=== PATIENT | male | born 1965 | race Caucasian/White ===

== ENCOUNTER 2016-06-24 16:33 | Emergency (ER) | payer BC ==
--- NOTE | 2016-06-24 17:16 | DIAGNOSTIC IMAGING REPORT ---
PROCEDURE: XR HAND 3 OR 4 VIEWS - RIGHT INDICATION: Trauma. Dog bite. TECHNIQUE: Three views. COMPARISON: None. FINDINGS: There is a small amount of subcutaneous emphysema over the dorsum of the right hand. Osseous structures and joint spaces are normal. No evidence of fracture or radiopaque foreign body. IMPRESSION: 1. Soft tissue injury over the dorsum of the right hand (subcutaneous emphysema). 2. Otherwise negative right hand.
--- NOTE | 2016-06-24 17:18 | ED NURSING NOTES ---
Clinical Report - Nurses [facility] [address] [place] [address] 06/24/2016 16:34 Patient: ELLY WARD TRIAGE Triage time 16:40 Jun 24 2016. Acuity: LEVEL 3. Chief Complaint: DOG BITE. Alert. ENRIQUE COMA SCORE: Enrique Coma Scale: 15- eyes open spontaneously (4); best verbal response- oriented x 4 (5); best motor response- obeys commands (6). --16:51 Tom Vora R.N. 16:40 06/24/16. BP: 135/98. HR: 96. RR: 16. O2 saturation: 98% on room air. Temp: 98.8 F. Pain level now: 07/08. --16:51 Tom Vora R.N. Weight: 94.3 kg stated. Height/Length: 73 inches Per Patient. BMI: 27.4. --16:45 Tom Vora R.N. Medications Doxycycline Calcium Oral, 2 x daily (For sinus infection). --16:44 Tom Vora R.N. Allergies Sulfa Antibiotics.(rash) --23:41 Tom Vora R.N. History Arrived by private vehicle. Historian: patient. Accompanied by family and spouse. ( Dog bite to (R) Hand. Puncture wound with swelling.). This occurred just prior to arrival. Circumstances: This was an "unprovoked" attack. (His puppy got excited when another dog approached). He has had swelling with tenderness ((R) Hand, dorsal region). Treatment MANAGER PRODUCT SUPPORT: (Pressure dressing applied in the field). PAST MEDICAL HX: Negative. SOCIAL HX: Never smoker. No alcohol use or drug use. No infectious disease exposure. ABUSE ASSESSMENT: No report of abuse. FALL RISK ASSESSMENT: Fall risk assessment completed. No fall risk identified. NUTRITIONAL RISK ASSESSMENT: The nutritional risk assessment revealed no deficiencies. FUNCTIONAL ASSESSMENT: Functional assessment: no impairments noted. LEARNING NEEDS ASSESSMENT: The learning needs assessment revealed no barriers. SKIN INTEGRITY ASSESSMENT: Skin integrity risk assessment completed. No skin integrity risk identified. --16:51 Tom Vora R.N. PROBLEMS: no known problems. ADDITIONAL SURGERIES: Inguinal Hernia Repair. --16:47 Tom Vora R.N. Interventions ID band on patient. To treatment room. --16:51 Tom Vora R.N. PHYSICAL ASSESSMENT Ambulatory to room. GENERAL / NEURO / PSYCH: Alert. Oriented X 4. HEENT: Head non-tender. RESPIRATORY: Respirations not labored. Breath sounds within normal limits. CVS: Normal heart rate and rhythm. Pulses within normal limits. Capillary refill less than 2 seconds. GI / : Abdomen soft and nontender. EXTREMITIES: Extremities exhibit normal ROM. Neuro-vascular status intact to the extremity. SKIN: Skin is warm and dry. No signs or symptoms of infection. --16:51 Tom Vora R.N. NURSING PROGRESS NOTES Reassurance given. Patient identifiers checked. Call light placed in reach. Side rails up x 1. Bed placed in lowest position. Brakes of bed on. Patient ready for evaluation- chart flagged and ED physician notified. --16:51 Tom Vora R.N. 16:50 06/24/16. Patient walked to radiology. --16:58 Tom Vora R.N. 17:00 06/24/16. ( (R) Hand wound cleansed with a Chlorhexadine sponge scrubby.). --17:09 Tom Vora R.N. 17:02 06/24/2016 Augmentin (Amoxicillin-Pot Clavulanate) PO Tablets 875 mg given. Allergies verified and confirmed 5 rights. --17:09 Tom Vora R.N. 16:57 late entry -. Patient walked back to ED from radiology with tech. --17:10 Tom Vora R.N. DISPOSITION / DISCHARGE Departure time: 1745. --19:38 Tom Vora R.N. 17:30 06/24/16. BP: 109/64. HR: 76. RR: 16. O2 saturation: 98%. Temp: 98.9 F. Pain level now: 06/07. --19:40 Tom Vora R.N. 17:45. No learning barriers present. Discharge instructions provided and reviewed with the patient. Reviewed medication(s) (prescription given to pt). Reviewed wound care instructions. Reviewed referral to family practice for followup. Patient verbalized understanding. Written instructions provided in Uzbek. The patient was discharged by the physician. He was discharged home and accompanied by spouse. He left the Emergency Department ambulatory and via private vehicle. Spouse driving. --23:40 Tom Vora R.N. Locked/Released at 06/24/2016 23:42 by Tom Vora R.N.
--- NOTE | 2016-06-24 17:18 | ED ORDER SUMMARY ---
..... Patient: ELLY WARD OrderSheet [facility] VisitID: [id number] [address] [place] [address] 51y, M Registration Date/Time: 06/24/2016 ORDER SHEET Weight: 94.3 kg (stated) Allergies: Sulfa Antibiotics GENERAL ORDERS: Hand 3 or 4V Right Urgent (16:46 06/24/2016 Sayra SORTO) (17:09 Dario R.N.) MEDICATION ORDERS: Augmentin PO 875 mg (NOW) (16:44 06/24/2016 Sayra SORTO) (17:09 Dario R.N.) IV FLUIDS: ORDER SHEET NOTES: [Electronically signed by Tom Vora R.N. (23:42 06/24/2016)] [Electronically signed by Venessa Moore MD (23:40 07/02/2016)] [Electronically locked/signed by Tom Vora R.N. (23:42 06/24/2016)]
--- NOTE | 2016-06-24 17:18 | ED NURSING NOTES ---
Clinical Report - Nurses [facility] [address] [place] [address] 06/24/2016 16:34 Patient: ELLY WARD TRIAGE Triage time 16:40 Jun 24 2016. Acuity: LEVEL 3. Chief Complaint: DOG BITE. Alert. ENRIQUE COMA SCORE: Enrique Coma Scale: 15- eyes open spontaneously (4); best verbal response- oriented x 4 (5); best motor response- obeys commands (6). --16:51 Tom Vora R.N. 16:40 06/24/16. BP: 135/98. HR: 96. RR: 16. O2 saturation: 98% on room air. Temp: 98.8 F. Pain level now: 07/08. --16:51 Tom Vora R.N. Weight: 94.3 kg stated. Height/Length: 73 inches Per Patient. BMI: 27.4. --16:45 Tom Vora R.N. Medications Doxycycline Calcium Oral, 2 x daily (For sinus infection). --16:44 Tom Vora R.N. Allergies Sulfa Antibiotics.(rash) --23:41 Tom Vora R.N. History Arrived by private vehicle. Historian: patient. Accompanied by family and spouse. ( Dog bite to (R) Hand. Puncture wound with swelling.). This occurred just prior to arrival. Circumstances: This was an "unprovoked" attack. (His puppy got excited when another dog approached). He has had swelling with tenderness ((R) Hand, dorsal region). Treatment CRUSHER SUPERVISOR: (Pressure dressing applied in the field). PAST MEDICAL HX: Negative. SOCIAL HX: Never smoker. No alcohol use or drug use. No infectious disease exposure. ABUSE ASSESSMENT: No report of abuse. FALL RISK ASSESSMENT: Fall risk assessment completed. No fall risk identified. NUTRITIONAL RISK ASSESSMENT: The nutritional risk assessment revealed no deficiencies. FUNCTIONAL ASSESSMENT: Functional assessment: no impairments noted. LEARNING NEEDS ASSESSMENT: The learning needs assessment revealed no barriers. SKIN INTEGRITY ASSESSMENT: Skin integrity risk assessment completed. No skin integrity risk identified. --16:51 Tom Vora R.N. PROBLEMS: no known problems. ADDITIONAL SURGERIES: Inguinal Hernia Repair. --16:47 Tom Vora R.N. Interventions ID band on patient. To treatment room. --16:51 Tom Vora R.N. PHYSICAL ASSESSMENT Ambulatory to room. GENERAL / NEURO / PSYCH: Alert. Oriented X 4. HEENT: Head non-tender. RESPIRATORY: Respirations not labored. Breath sounds within normal limits. CVS: Normal heart rate and rhythm. Pulses within normal limits. Capillary refill less than 2 seconds. GI / : Abdomen soft and nontender. EXTREMITIES: Extremities exhibit normal ROM. Neuro-vascular status intact to the extremity. SKIN: Skin is warm and dry. No signs or symptoms of infection. --16:51 Tom Vora R.N. NURSING PROGRESS NOTES Reassurance given. Patient identifiers checked. Call light placed in reach. Side rails up x 1. Bed placed in lowest position. Brakes of bed on. Patient ready for evaluation- chart flagged and ED physician notified. --16:51 Tom Vora R.N. 16:50 06/24/16. Patient walked to radiology. --16:58 Tom Vora R.N. 17:00 06/24/16. ( (R) Hand wound cleansed with a Chlorhexadine sponge scrubby.). --17:09 Tom Vora R.N. 17:02 06/24/2016 Augmentin (Amoxicillin-Pot Clavulanate) PO Tablets 875 mg given. Allergies verified and confirmed 5 rights. --17:09 Tom Vora R.N. 16:57 late entry -. Patient walked back to ED from radiology with tech. --17:10 Tom Vora R.N. DISPOSITION / DISCHARGE Departure time: 1745. --19:38 Tom Vora R.N. 17:30 06/24/16. BP: 109/64. HR: 76. RR: 16. O2 saturation: 98%. Temp: 98.9 F. Pain level now: 06/07. --19:40 Tom Vora R.N. 17:45. No learning barriers present. Discharge instructions provided and reviewed with the patient. Reviewed medication(s) (prescription given to pt). Reviewed wound care instructions. Reviewed referral to family practice for followup. Patient verbalized understanding. Written instructions provided in Divehi. The patient was discharged by the physician. He was discharged home and accompanied by spouse. He left the Emergency Department ambulatory and via private vehicle. Spouse driving. --23:40 Tom Vora R.N. Locked/Released at 06/24/2016 23:42 by Tom Vora R.N.
--- NOTE | 2016-06-24 17:18 | ED ORDER SUMMARY ---
..... Patient: ELLY WARD OrderSheet [facility] VisitID: [id number] [address] [place] [address] 51y, M Registration Date/Time: 06/24/2016 ORDER SHEET Weight: 94.3 kg (stated) Allergies: Sulfa Antibiotics GENERAL ORDERS: Hand 3 or 4V Right Urgent (16:46 06/24/2016 Sayra SORTO) (17:09 Dario R.N.) MEDICATION ORDERS: Augmentin PO 875 mg (NOW) (16:44 06/24/2016 Sayra SORTO) (17:09 Dario R.N.) IV FLUIDS: ORDER SHEET NOTES: [Electronically signed by Tom Vora R.N. (23:42 06/24/2016)] [Electronically signed by Venessa Moore MD (23:40 07/02/2016)] [Electronically locked/signed by Tom Vora R.N. (23:42 06/24/2016)]
--- NOTE | 2016-06-24 17:18 | ED CLINICAL REPORT ---
Clinical Report - Physicians/Mid Levels [facility] [address] [place] [address] 06/24/2016 16:34 Patient: ELLY WARD Time Seen: 16:40. Arrived- By private vehicle. Historian- patient. HISTORY OF PRESENT ILLNESS Location of injuries- right hand. Chief Complaint: DOG BITE. The injury occurred just prior to arrival. The animal reportedly appeared well. Occurred at a park. This was an "unprovoked" attack. (pt's dog was excitedly playing with another dog). The patient has had swelling (localized, around bite, with bruising). No skin rash, dizziness, itching, fainting episodes or difficulty breathing. He has not had drainage or trouble swallowing. REVIEW OF SYSTEMS The patient has had swelling. No numbness, headache, difficulty breathing, weakness or tingling. No chest pain, nausea, fever, joint pain or enlarged lymph nodes. No abdominal pain, vomiting or chills. All systems otherwise negative, except as recorded above. PAST HISTORY Problems: no known problems. Additional Surgeries: Inguinal Hernia Repair. Medications: Doxycycline Calcium Oral, 2 x daily (For sinus infection). Allergies: Sulfa Antibiotics.(rash). SOCIAL HISTORY Never smoker. No alcohol use or drug use. ADDITIONAL NOTES The nursing notes have been reviewed. PHYSICAL EXAM Vital Signs: 06/24/2016 16:40 BP: 135/98. HR: 96. RR: 16. O2 saturation: 98%. Temp: 98.8 F. Pain level now: 210. Have been reviewed. Appearance: Alert. Oriented X3. No acute distress. Head: Head normal on inspection and non-tender. Eyes: Eyes normal inspection. ENT: Nose normal on inspection. Neck: No decreased ROM in the neck. CVS: Pulses normal. Respiratory: No respiratory distress. Back: ROM normal. Skin: Skin warm and dry. Normal skin color. Normal skin turgor. Extremities: Dorsal right hand: moderate tenderness and swelling, small ecchymosis and multiple puncture wounds of the distal aspect of the dorsal hand. Neurovascular intact distally. No erythema, laceration, abrasion, foreign body or deformity. No limitation of extension. Neuro: Oriented X 3. No motor deficit. No sensory deficit. LABS, X-RAYS, AND EKG Rt Hand X-ray: No fracture. Normal alignment. No bony lesion, air in the soft tissue or foreign body. Soft tissues normal. Joint spaces normal. Views: AP, lateral and oblique. Technique: good. The X-rays were independently viewed by me, interpreted by the radiologist and contemporaneously by me and discussed with the radiologist. Prior films were not available for comparison. Pulse Oximetry: 06/24/2016 16:40 O2 saturation: 98%. (FIO2 - room air). Interpretation: normal. PROGRESS AND PROCEDURES Course of Care: Hand x-ray was negative. Wounds were soaked in saline with betadine, and pt was started on prophylactic Augmentin. Patient counseled in person regarding the patient's stable condition and diagnosis. Old medical records reviewed. Disposition: Discharged. Condition: stable. CLINICAL IMPRESSION Single superficial dog bite to the right hand. INSTRUCTIONS Apply ice for 15-20 minutes three times a day as needed and until better. Don't apply ice directly to skin and don't use while asleep. Elevate affected areas above chest level. Warnings: GENERAL WARNINGS: Return or contact your physician immediately if your condition worsens or changes unexpectedly, if not improving as expected, or if other problems arise. Your Current Medications: CONTINUE TAKING THE FOLLOWING MEDICATIONS: Doxycycline Calcium Oral : 2 x daily, For sinus infection. Prescription Medications: Hydrocodone/APAP 5mg / 325mg: take 1-2 orally every 6 hours as needed for pain. Dispense twelve (12). No refill. Augmentin 875 mg: take 1 tablet orally every 12 hours for 7 days. No refill. Substitution is permissible. Follow-up: Follow up with your doctor as needed. Understanding of the discharge instructions verbalized by patient. (Electronically signed by Venessa Moore MD 07/02/2016 23:40) Addenda for ELLY WARD VisitID: [id number] Date: 06/24/2016 06/24/2016 23:44 4700--Bacitracin Antibiotic ointment applied to puncture wound, vaseline gauze applied over ointment followed by a sterile 4x4 and wrapped in Kerlix Gauze. (Electronically signed by Tom Vora R.N. - 06/24/2016 23:44)
--- NOTE | 2016-06-24 17:18 | ED CLINICAL REPORT ---
Clinical Report - Physicians/Mid Levels [facility] [address] [place] [address] 06/24/2016 16:34 Patient: ELLY WARD Time Seen: 16:40. Arrived- By private vehicle. Historian- patient. HISTORY OF PRESENT ILLNESS Location of injuries- right hand. Chief Complaint: DOG BITE. The injury occurred just prior to arrival. The animal reportedly appeared well. Occurred at a park. This was an "unprovoked" attack. (pt's dog was excitedly playing with another dog). The patient has had swelling (localized, around bite, with bruising). No skin rash, dizziness, itching, fainting episodes or difficulty breathing. He has not had drainage or trouble swallowing. REVIEW OF SYSTEMS The patient has had swelling. No numbness, headache, difficulty breathing, weakness or tingling. No chest pain, nausea, fever, joint pain or enlarged lymph nodes. No abdominal pain, vomiting or chills. All systems otherwise negative, except as recorded above. PAST HISTORY Problems: no known problems. Additional Surgeries: Inguinal Hernia Repair. Medications: Doxycycline Calcium Oral, 2 x daily (For sinus infection). Allergies: Sulfa Antibiotics.(rash). SOCIAL HISTORY Never smoker. No alcohol use or drug use. ADDITIONAL NOTES The nursing notes have been reviewed. PHYSICAL EXAM Vital Signs: 06/24/2016 16:40 BP: 135/98. HR: 96. RR: 16. O2 saturation: 98%. Temp: 98.8 F. Pain level now: 210. Have been reviewed. Appearance: Alert. Oriented X3. No acute distress. Head: Head normal on inspection and non-tender. Eyes: Eyes normal inspection. ENT: Nose normal on inspection. Neck: No decreased ROM in the neck. CVS: Pulses normal. Respiratory: No respiratory distress. Back: ROM normal. Skin: Skin warm and dry. Normal skin color. Normal skin turgor. Extremities: Dorsal right hand: moderate tenderness and swelling, small ecchymosis and multiple puncture wounds of the distal aspect of the dorsal hand. Neurovascular intact distally. No erythema, laceration, abrasion, foreign body or deformity. No limitation of extension. Neuro: Oriented X 3. No motor deficit. No sensory deficit. LABS, X-RAYS, AND EKG Rt Hand X-ray: No fracture. Normal alignment. No bony lesion, air in the soft tissue or foreign body. Soft tissues normal. Joint spaces normal. Views: AP, lateral and oblique. Technique: good. The X-rays were independently viewed by me, interpreted by the radiologist and contemporaneously by me and discussed with the radiologist. Prior films were not available for comparison. Pulse Oximetry: 06/24/2016 16:40 O2 saturation: 98%. (FIO2 - room air). Interpretation: normal. PROGRESS AND PROCEDURES Course of Care: Hand x-ray was negative. Wounds were soaked in saline with betadine, and pt was started on prophylactic Augmentin. Patient counseled in person regarding the patient's stable condition and diagnosis. Old medical records reviewed. Disposition: Discharged. Condition: stable. CLINICAL IMPRESSION Single superficial dog bite to the right hand. INSTRUCTIONS Apply ice for 15-20 minutes three times a day as needed and until better. Don't apply ice directly to skin and don't use while asleep. Elevate affected areas above chest level. Warnings: GENERAL WARNINGS: Return or contact your physician immediately if your condition worsens or changes unexpectedly, if not improving as expected, or if other problems arise. Your Current Medications: CONTINUE TAKING THE FOLLOWING MEDICATIONS: Doxycycline Calcium Oral : 2 x daily, For sinus infection. Prescription Medications: Hydrocodone/APAP 5mg / 325mg: take 1-2 orally every 6 hours as needed for pain. Dispense twelve (12). No refill. Augmentin 875 mg: take 1 tablet orally every 12 hours for 7 days. No refill. Substitution is permissible. Follow-up: Follow up with your doctor as needed. Understanding of the discharge instructions verbalized by patient. (Electronically signed by Venessa Moore MD 07/02/2016 23:40) Addenda for ELLY WARD VisitID: [id number] Date: 06/24/2016 06/24/2016 23:44 2400--Bacitracin Antibiotic ointment applied to puncture wound, vaseline gauze applied over ointment followed by a sterile 4x4 and wrapped in Kerlix Gauze. (Electronically signed by Tom oVra R.N. - 06/24/2016 23:44)
--- NOTE | 2016-07-02 23:40 | ED MAR SUMMARY ---
..... Medication Administration Record [facility] [address] [place] [address] Patient: ELLY WARD Visit ID: [id number] 51y, M Weight: 94.3 kg Height/Length: 73 in BMI: 27.4 ALLERGIES: Sulfa Antibiotics Given 17:02 06/24/2016 Tom Vora R.N. Medication Administered: AUGMENTIN [PO] (AMOXICILLIN-POT CLAVULANATE), Dose: 875 mg Tablets PO. Medication Ordered: Augmentin PO 875 mg (NOW).
--- NOTE | 2016-07-02 23:40 | ED MAR SUMMARY ---
..... Medication Administration Record [facility] [address] [place] [address] Patient: ELLY WARD Visit ID: [id number] 51y, M Weight: 94.3 kg Height/Length: 73 in BMI: 27.4 ALLERGIES: Sulfa Antibiotics Given 17:02 06/24/2016 Tom Vora R.N. Medication Administered: AUGMENTIN [PO] (AMOXICILLIN-POT CLAVULANATE), Dose: 875 mg Tablets PO. Medication Ordered: Augmentin PO 875 mg (NOW).
--- NOTE | 2016-07-02 23:40 | ED MED RECONCILIATION SUMMARY ---
Patient: ELLY WARD Medication Reconciliation Report [facility] VisitID: [id number] [address] [place] [address] 51y, M Registration Date/Time: 06/24/2016 Weight: 94.3 kg Height/Length: 73 in. BMI: 27.4 ALLERGIES: Sulfa Antibiotics The patient's Home Medications are listed below: CONTINUE TAKING THE FOLLOWING MEDICATIONS: Doxycycline Calcium Oral, 2 x daily, For sinus infection The source(s) of the original Home Medication information: Not obtained. The following Medications were given to the patient in the Emergency Department: Augmentin [PO] PO 875 mg, administered: 06/24/2016 5:02:00 PM The following Medications were prescribed to the patient: Hydrocodone/APAP 5mg / 325mg: take 1-2 orally every 6 hours as needed for pain. Dispense twelve (12). No refill. -- Venessa Moore MD Augmentin 875 mg: take 1 tablet orally every 12 hours for 7 days. No refill. Substitution is permissible. -- Venessa Moore MD
--- NOTE | 2016-07-02 23:40 | ED DISCHARGE INSTRUCTIONS ---
Patient: ELLY WARD General Instructions [facility] VisitID: [id number] [place] [address] 51y, M Registration Date/Time: 06/24/2016 Single superficial dog bite to the right hand. INSTRUCTIONS Apply ice for 15-20 minutes three times a day as needed and until better. Don't apply ice directly to skin and don't use while asleep. Elevate affected areas above chest level. Warnings: GENERAL WARNINGS: Return or contact your physician immediately if your condition worsens or changes unexpectedly, if not improving as expected, or if other problems arise. Your Current Medications: CONTINUE TAKING THE FOLLOWING MEDICATIONS: Doxycycline Calcium Oral : 2 x daily, For sinus infection. Prescription Medications: Hydrocodone/APAP 5mg / 325mg: take 1-2 orally every 6 hours as needed for pain. Dispense twelve (12). No refill. Augmentin 875 mg: take 1 tablet orally every 12 hours for 7 days. No refill. Substitution is permissible. Follow-up: Follow up with your doctor as needed. Understanding of the discharge instructions verbalized by patient. ADDITIONAL INFORMATION Dog Bite If a dog has bitten you and the wound is deep enough to break the skin, an infection may occur. Therefore, you should watch for the warning signs listed below. The doctor may not close the wound completely. This is to allow fluid to drain in the event of an infection. Home Care Watch the wound for signs of infection listed below. In certain types of bites, antibiotics may be prescribed. Begin taking these as soon as possible, as directed until they are all gone. Rabies Prevention If you live in an area where rabies occurs in wild animals, the rabies virus can be passed to cats and dogs. An infected animal can pass the rabies virus to you during a bite. If ahealthy-looking pet dog has bitten you, it should be kept in a secure area for the next 10 days to watch for signs of illness. If the pet smelter charger wont cooperate with you, contact the [facility] animal control department (or local law enforcement). If the animal becomes ill or dies [id number] days, contact your animal control department at once. The animal must be tested for rabies. If the animal stays healthy for the next 10 days, then there is no danger of rabies in the dog or you. Pets fully vaccinated against rabies (2 shots) are at very low risk for the infection. However, because human rabies is almost always fatal, any biting dog should be kept in confinement for 10 days as an extra precaution. If a stray dog bit you, contact the animal control department. They can provide information on capture, quarantine, and animal rabies testing. If you are unable to locate the animal that bit you in the next 2days, and if rabies exists in your region, you must be evaluated for the rabies vaccine series. Contact your doctor or return here promptly. All animal bites should be reported to the [facility] animal control department. If you were not given a form to fill out, you can report it yourself by calling. Follow Up with your doctor as advised. Most skin wounds heal within 10 days. However, an infection may occur even with proper treatment. Check your woundevery 6 hoursfor 2 days, then at least once a day for the next two days for the signs of infection listed below. Get Prompt Medical Attention if any of the following occur: Signs of infection: Spreading redness Increased pain or swelling Fever of 100.4F (38C) or higher, or as directed by your healthcare provider Colored fluid or pus draining from the wound Headache, confusion, strange behavior, or a seizure (signs of a rabies infection) You have been given the following additional information: Dog Bite (Electronically signed by Venessa Moore MD 07/02/2016 23:40)
--- NOTE | 2016-07-02 23:40 | ED DISCHARGE INSTRUCTIONS ---
Patient: ELLY WARD General Instructions [facility] VisitID: [id number] [place] [address] 51y, M Registration Date/Time: 06/24/2016 Single superficial dog bite to the right hand. INSTRUCTIONS Apply ice for 15-20 minutes three times a day as needed and until better. Don't apply ice directly to skin and don't use while asleep. Elevate affected areas above chest level. Warnings: GENERAL WARNINGS: Return or contact your physician immediately if your condition worsens or changes unexpectedly, if not improving as expected, or if other problems arise. Your Current Medications: CONTINUE TAKING THE FOLLOWING MEDICATIONS: Doxycycline Calcium Oral : 2 x daily, For sinus infection. Prescription Medications: Hydrocodone/APAP 5mg / 325mg: take 1-2 orally every 6 hours as needed for pain. Dispense twelve (12). No refill. Augmentin 875 mg: take 1 tablet orally every 12 hours for 7 days. No refill. Substitution is permissible. Follow-up: Follow up with your doctor as needed. Understanding of the discharge instructions verbalized by patient. ADDITIONAL INFORMATION Dog Bite If a dog has bitten you and the wound is deep enough to break the skin, an infection may occur. Therefore, you should watch for the warning signs listed below. The doctor may not close the wound completely. This is to allow fluid to drain in the event of an infection. Home Care Watch the wound for signs of infection listed below. In certain types of bites, antibiotics may be prescribed. Begin taking these as soon as possible, as directed until they are all gone. Rabies Prevention If you live in an area where rabies occurs in wild animals, the rabies virus can be passed to cats and dogs. An infected animal can pass the rabies virus to you during a bite. If ahealthy-looking pet dog has bitten you, it should be kept in a secure area for the next 10 days to watch for signs of illness. If the pet ore crusher wont cooperate with you, contact the [facility] animal control department (or local law enforcement). If the animal becomes ill or dies days, contact your animal control department at once. The animal must be tested for rabies. If the animal stays healthy for the next 10 days, then there is no danger of rabies in the dog or you. Pets fully vaccinated against rabies (2 shots) are at very low risk for the infection. However, because human rabies is almost always fatal, any biting dog should be kept in confinement for 10 days as an extra precaution. If a stray dog bit you, contact the animal control department. They can provide information on capture, quarantine, and animal rabies testing. If you are unable to locate the animal that bit you in the next 2days, and if rabies exists in your region, you must be evaluated for the rabies vaccine series. Contact your doctor or return here promptly. All animal bites should be reported to the [facility] animal control department. If you were not given a form to fill out, you can report it yourself by calling. Follow Up with your doctor as advised. Most skin wounds heal within 10 days. However, an infection may occur even with proper treatment. Check your woundevery 6 hoursfor 2 days, then at least once a day for the next two days for the signs of infection listed below. Get Prompt Medical Attention if any of the following occur: Signs of infection: Spreading redness Increased pain or swelling Fever of 100.4F (38C) or higher, or as directed by your healthcare provider Colored fluid or pus draining from the wound Headache, confusion, strange behavior, or a seizure (signs of a rabies infection) You have been given the following additional information: Dog Bite (Electronically signed by Venessa Moore MD 07/02/2016 23:40)
--- NOTE | 2016-07-02 23:40 | ED MED RECONCILIATION SUMMARY ---
Patient: ELLY WARD Medication Reconciliation Report [facility] VisitID: [id number] [place] [address] 51y, M Registration Date/Time: 06/24/2016 Weight: 94.3 kg Height/Length: 73 in. BMI: 27.4 ALLERGIES: Sulfa Antibiotics The patient's Home Medications are listed below: CONTINUE TAKING THE FOLLOWING MEDICATIONS: Doxycycline Calcium Oral, 2 x daily, For sinus infection The source(s) of the original Home Medication information: Not obtained. The following Medications were given to the patient in the Emergency Department: Augmentin [PO] PO 875 mg, administered: 06/24/2016 5:02:00 PM The following Medications were prescribed to the patient: Hydrocodone/APAP 5mg / 325mg: take 1-2 orally every 6 hours as needed for pain. Dispense twelve (12). No refill. -- Venessa Moore MD Augmentin 875 mg: take 1 tablet orally every 12 hours for 7 days. No refill. Substitution is permissible. -- Venessa Moore MD
== END 2016-06-24 17:45 | disposition home or self-care (01) ==
LOC: ED SRH 16:33
DX: S60.571A Other superficial bite of hand of right hand, initial encounter (principal); W54.0XXA Bitten by dog, initial encounter; Y93.9 Activity, unspecified; Y92.9 Unspecified place or not applicable; Y99.9 Unspecified external cause status